=== PATIENT | female | born 1950 | race American Indian/Alaskan Native ===

== ENCOUNTER 2018-01-29 13:01 | Emergency (ER) | payer MEDICARE ==
[2018-01-29 14:14] LABS: Basophils # (Auto) 0.1 K/mm3 (0.0-0.1); Basophils % (Auto) 0.9 % (0.0-1.8); Eosinophils # (Auto) 0.1 K/mm3 (0.0-0.4); Eosinophils % (Auto) 2.2 % (0.0-4.3); Hematocrit 37.5 % (30.3-42.9); Lymphocytes # (Auto) 1.5 K/mm3 (1.2-5.4); Lymphocytes % (Auto) 22.7 % (13.4-35.0); Mean Corpuscular HGB Conc 32 % (30-34); Mean Corpuscular Volume 80 fl (79-97); Monocytes # (Auto) 0.3 K/mm3 (0.0-0.8); Platelet Count 299 K/mm3 (140-440); Red Blood Count 4.67 M/mm3 (3.65-5.03); Red Cell Distribution Width 14.2 % (13.2-15.2)
[2018-01-29 14:16] LABS: Mean Corpuscular Hemoglobin 26 pg (28-32)
[2018-01-29 14:37] LABS: Calcium 9.9 mg/dL (8.4-10.2)
[2018-01-29 17:24] LABS: Color,Urine Yellow (Yellow)
[2018-01-29 17:25] LABS: Bacteria,Urine 2+ /HPF (Negative); Bilirubin,Urine NEG (Negative); Blood,Urine SM (Negative); Protein,Urine <15 mg/dL mg/dL (Negative); Urobilinogen,Urine < 2.0 mg/dL (<2.0)
[2018-01-29 17:28] LABS: Amphetamine Screen,Urine PRESUMPTIVE NEGATIVE; Benzodiazepines Screen,Urine PRESUMPTIVE NEGATIVE; Cannabinoid Screen,Urine PRESUMPTIVE NEGATIVE; Cocaine Screen,Urine PRESUMPTIVE NEGATIVE; Methadone Screen,Urine PRESUMPTIVE NEGATIVE; Opiate Screen,Urine PRESUMPTIVE NEGATIVE
[2018-01-29] MEDS ORDERED: KEFLEX PO ONE (18:11)
--- NOTE | 2018-01-29 20:02 | Emergency Department Report ---
HPI - General Chief Complaint: Psych Time Seen by Provider: 01/29/18 14:04 - HPI HPI: 67-year-old female sent from shelter after being agitated and throwing a cane at the assembler wire group. Police were called to the place, and patient was sent to the ED for mental evaluation. Police stated that patient was yelling and screaming at the site. Patient denies disease accounts. Stating she was not violent in any way and that foreclosure home inspector is lying. Patient denies any SI, HI. ED Past Medical Hx - Past Medical History Hx Hypertension: Yes Hx CVA: No - Social History Smoking Status: Never Smoker - Medications Home Medications: Home Medications Medication Instructions Recorded Confirmed Last Taken Type ARIPiprazole [Abilify] 15 mg PO QHS 01/29/18 01/29/18 Unknown History Divalproex Sodium [Divalproex 250 mg PO BID 01/29/18 01/29/18 Unknown History Sodium ER] Metoprolol Tartrate 25 mg PO BID 01/29/18 01/29/18 Unknown History Sucralfate [Carafate] 1 gm PO Q6HR 01/29/18 01/29/18 Unknown History traZODone [Desyrel] 50 mg PO QHS 01/29/18 01/29/18 Unknown History ED Review of Systems ROS: Stated complaint: MENTAL HEALTH/1013 Other details as noted in HPI Comment: All other systems reviewed and negative Skin: denies: rash, lesions Neurological: denies: headache, weakness Psychiatric: denies: anxiety, depression, auditory hallucinations, visual hallucinations, homicidal thoughts, suicidal thoughts Physical Exam - Physical Exam Vital Signs: Vital Signs 01/29/18 01/29/18 13:54 13:55 Temperature 98.2 F Pulse Rate 105 H Respiratory 16 16 Rate Blood Pressure 161/94 [Left] O2 Sat by Pulse 99 99 Oximetry Physical Exam: - Physical Exam Physical Exam: - General Limitations: No Limitations General appearance: alert, in no apparent distress. - Head Head exam: Present: atraumatic, normocephalic - Eye Eye exam: Present: normal appearance - ENT ENT exam: Present: mucous membranes moist - Neck Neck exam: Present: normal inspection - Respiratory Respiratory exam: Present: normal lung sounds bilaterally. Absent: respiratory distress - Cardiovascular Cardiovascular Exam: Present: normal rhythm, tachycardia. Absent: systolic murmur, diastolic murmur, rubs, gallop - GI/Abdominal GI/Abdominal exam: Present: soft, normal bowel sounds - Extremities Exam Extremities exam: Present: normal inspection - Back Exam Back exam: Present: normal inspection - Neurological Exam Neurological exam: Present: alert, oriented X3 - Psychiatric Psychiatric exam: normal affect and mood - Skin Skin exam: Present: warm, dry, intact, normal color. Absent: rash ED Course Vital Signs 01/29/18 01/29/18 13:54 13:55 Temperature 98.2 F Pulse Rate 105 H Respiratory 16 16 Rate Blood Pressure 161/94 [Left] O2 Sat by Pulse 99 99 Oximetry - Reevaluation(s) Reevaluation #1: 01/29/18 20:12 Case management already left for the day, unable to reach patient's family. Patient is not violent here but not sure of her baseline since she can't go back to the shelter, we'll wait for case management to arrange placement. I have tried to reach the patient's next of kin, which were number provided to me by patient [phone] but no one answered. 01/29/18 20:18 01/29/18 20:19 ED Medical Decision Making - Lab Data Result diagrams: 01/29/18 13:43 01/29/18 13:43 Critical care attestation.: If time is entered above; I have spent that time in minutes in the direct care of this critically ill patient, excluding procedure time. ED Disposition Condition: Stable Referrals: PRIMARY CARE, [Primary Care Provider] - 3-5 Days
[2018-01-30] MEDS ORDERED: ABILIFY PO SCH (22:00)
[2018-01-30] MEDS ORDERED: DESYREL PO SCH (22:00)
[2018-01-30] MEDS: LOPRESSOR PO SCH (22:29)
[2018-01-30] MEDS: MACROBID PO SCH (22:29)
[2018-01-31] MEDS: CARAFATE PO SCH ×3 (00:02→12:30)
[2018-01-31] MEDS: MACROBID PO SCH (10:56)
[2018-01-31] MEDS: LOPRESSOR PO SCH (11:56)
[2018-01-31 17:33] VITALS: BP 138/76
--- NOTE | 2018-02-02 22:56 | Progress Note ---
Subjective - Reason for Consult Consult date: 01/31/18 Reason for consult: Psychiatric Follow-up Evaluation - Chief Complaint Chief complaint: Alessia is a 67-year-old female sent from skilled nursing after being agitated and throwing a cane at the workgroup leader. Police were called to the place, and patient was sent to the ED for a mental health evaluation. Today, she reports " I feel okay. I'm here because of lies." Patient is planning to discharge to skilled nursing. Initial psychiatric evaluation will be documented at a later time by the seen provider (unknown). Mental Status Exam - Vital signs Last Vital Signs Temp 98.3 F 01/31/18 17:15 Pulse 60 01/31/18 17:15 Resp 18 01/31/18 17:15 BP 138/76 01/31/18 17:15 Pulse Ox 95 01/31/18 17:15 - Exam Narrative exam: Mental Status Exam General Appearance: Causally Dressed-hospital gown Eye Contact: Intermittent Orientation: Alert and oriented x 4 ( person, place, time, and situation) Attitude/Behavior: Cooperative, evasive/guarded Sensorium: Clear Psychomotor & Musculoskeletal Activity: WNL Mood: "Okay." Affect: Constricted Speech/Language: Normal rate and tone Thought Processes: Organized but circumstantial Thought Content: Patient denies Perception: WNL-patient denies Concentration/Attention: Intact Suicidal Ideations/Plan: Patient denies Homicidal Ideations/Plan: Patient denies Assessment and Plan Impression: Alessia is a 67 year old AAF who presents to [facility] for agitation and combative behavior. Today she presents calm but easily irritated. Patient is evasive and guarded during the assessment. She denies SI/HI, A/VH, and delusions DDx: Mood Disorder Unspecified r/o Psychosis Unspecified Plan: 1. Patient will be discharged to skilled nursing. 2. Assist patient with outpatient services/resources. 3. Patient informed to call 911 or report to the emergency room in case of a psychiatric evaluation.
== END 2018-01-31 17:15 | disposition home or self-care (01) ==
LOC: ED 13:01
DX: R45.1 Restlessness and agitation (principal); I10 Essential (primary) hypertension
CPT/HCPCS: 36415; 80048; 80164; 80307; 81001; 85025; 99284; G0480; 80320; 99285